=== PATIENT | male | born 1990 | race African-American/Black ===

== ENCOUNTER 2022-03-07 02:12 | Emergency (ER) | payer OTHER ==
[~2022-03-07] VITALS: Ht 188 cm; Wt 118.2 kg
[2022-03-07 02:40] LABS: BASOPHILS % (AUTO) 0.4 % (0.0-2.0); EOSINOPHILS % (AUTO) 3.1 % (1.0-6.0); HEMATOCRIT 44.7 % (41-53); HEMOGLOBIN 14.6 g/dL (13.5-17.5); LYMPHOCYTES % (AUTO) 32.6 % (22.0-44.0); MEAN CORPUSCULAR HEMOGLOBIN 27.8 pg (26.0-34.0); MEAN CORPUSCULAR HGB CONC 32.6 G/dL (31.0-37.0); MEAN CORPUSCULAR VOLUME 85 fL (80-100); MONOCYTES # (AUTO) 0.8 K/uL (0.1-1.0); MONOCYTES % (AUTO) 6.2 % (2.0-9.0); NEUTROPHILS # (AUTO) 7.1 K/uL (1.8-7.7); NEUTROPHILS % (AUTO) 57.7 % (40.0-70.0); PLATELET COUNT (AUTO) 257 K/uL (150-450); RED BLOOD CELL COUNT(AUTO) 5.24 MIL/uL (4.50-5.90); RED CELL DISTRIBUTION WIDTH 13.2 % (11.5-14.5)
[2022-03-07 02:43] LABS: ANION GAP 9 mmol/L (8-16); CALCIUM, TOTAL 8.9 mg/dL (8.8-10.5); CARBON DIOXIDE 27 mmol/L (22-29); CHLORIDE 102 mmol/L (98-107); CREATININE 0.98 mg/dL (0.60-1.30); GLOMERULAR FILTR. RATE CALC > 60 mL/min (>60); GLUCOSE,RANDOM 91 mg/dL (70-110); POTASSIUM 3.7 mmol/L (3.5-5.1); SODIUM SERUM 138 mmol/L (136-145); UREA NITROGEN, BLOOD 14 mg/dL (7-18)
[2022-03-07 02:49] LABS: ALANINE AMINOTRANSFERASE 55 U/L (12-78); ALBUMIN 3.9 g/dL (3.4-5.0); ALKALINE PHOSPHATASE 102 U/L (46-116); ASPARTATE AMINOTRANSFERASE 26 U/L (15-37); BILIRUBIN,TOTAL 0.5 mg/dL (0.1-1.0); LIPASE 47 U/L (73-393); TOTAL PROTEIN, SERUM 7.5 g/dL (6.4-8.2)
[2022-03-07] MEDS ORDERED: SODIUM CHLORIDE 0.9% 1,000 ML IV ONE (03:30)
[2022-03-07 04:15] VITALS: BP 148/93
[2022-03-07 05:00] LABS: APPEARANCE,URINE CLEAR (CLEAR); BILIRUBIN,URINE NEGATIVE (NEGATIVE); GLUCOSE, URINE (UA) NEGATIVE (NEGATIVE); KETONES,URINE NEGATIVE (NEGATIVE); LEUKOCYTE ESTERASE ,URINE NEGATIVE (NEGATIVE); NITRATE,URINE NEGATIVE (NEGATIVE); OCCULT BLOOD,URINE NEGATIVE (NEGATIVE); PH,URINE 7.5 (5.0-8.0); PROTEIN,URINE TRACE mg/dL (NEGATIVE); SPECIFIC GRAVITIY, URINE 1.025 (1.003-1.030); UROBILINOGEN,URINE <=1.0 mg/dL (<=1.0)
== END 2022-03-07 08:21 | disposition home or self-care (01) ==
LOC: EMS 02:18
DX: R10.84 Generalized abdominal pain (principal); F10.20 Alcohol dependence, uncomplicated
CPT/HCPCS: 36415; 74022; 74176; 80053; 81003; 83690; 85025; 93005; 96360; 99285; J7030

== ENCOUNTER 2024-08-27 12:19 | Inpatient (IN) | payer OTHER ==
[2024-08-27] VITALS (7 sets, daily range): BP systolic 111–151; BP diastolic 60–84; PULSE 72–97; RESP 15–16; TEMP 98.1–98.2; O2SAT 98
[~2024-08-27] VITALS: Ht 185.4 cm; Wt 181.0 kg
[2024-08-27] MEDS: TICAGRELOR 90 MG TABLET PO ONE (12:37)
[2024-08-27] MEDS: HEPARIN SODIUM,PORCINE 5,000 UNITS/ML VIAL IVP ONE (12:37)
[2024-08-27] MEDS: MORPHINE SULFATE 4 MG/ML SYRINGE IVP ONE (12:41)
[2024-08-27] MEDS: ONDANSETRON HCL 4 MG/2 ML VIAL IVP ONE (12:41)
[2024-08-27] MEDS ORDERED: ATORVASTATIN CALCIUM 20 MG TABLET ONE (12:44)
[2024-08-27] MEDS: ATORVASTATIN CALCIUM 40 MG TABLET PO ONE (12:47)
[2024-08-27 12:52] LABS: BASOPHILS % (AUTO) 0.4 % (0.0-2.0); EOSINOPHILS % (AUTO) 0.9 % (1.0-6.0); HEMATOCRIT 42.9 % (41-53); HEMOGLOBIN 13.8 g/dL (13.5-17.5); LYMPHOCYTES # (AUTO) 2.1 K/uL (1.0-4.8); LYMPHOCYTES % (AUTO) 16.7 % (22.0-44.0); MEAN CORPUSCULAR HEMOGLOBIN 27.9 pg (26.0-34.0); MEAN CORPUSCULAR HGB CONC 32.2 G/dL (31.0-37.0); MEAN CORPUSCULAR VOLUME 87 fL (80-100); MONOCYTES # (AUTO) 0.6 K/uL (0.1-1.0); MONOCYTES % (AUTO) 4.9 % (2.0-9.0); NEUTROPHILS # (AUTO) 9.7 K/uL (1.8-7.7); NEUTROPHILS % (AUTO) 77.1 % (40.0-70.0); PLATELET COUNT (AUTO) 275 K/uL (150-450); RED BLOOD CELL COUNT(AUTO) 4.95 MIL/uL (4.50-5.90); RED CELL DISTRIBUTION WIDTH 13.5 % (11.5-14.5); WHITE BLOOD COUNT (AUTO) 12.6 K/uL (4.5-11.0)
[2024-08-27] MEDS ORDERED: IOHEXOL 300 MG/ML 100 ML VIAL ONE (12:58)
[2024-08-27] MEDS ORDERED: LIDOCAINE/PF 1% 30 ML VIAL ONE (12:58)
[2024-08-27] MEDS ORDERED: HEPARIN SODIUM 1000 UNITS/NS 1,000 ML ONE (12:58)
[2024-08-27] MEDS ORDERED: SODIUM BICARBONATE 50 MEQ/50 ML VIAL ONE (12:58)
[2024-08-27] MEDS ORDERED: ONDANSETRON HCL 4 MG/2 ML VIAL IVP PRN (13:00)
[2024-08-27] MEDS ORDERED: NITROGLYCERIN 50 MG/D5% WATER 250 ML ONE (13:01)
[2024-08-27] MEDS ORDERED: VERAPAMIL HCL 2.5 MG/ML 2 ML VIAL ONE (13:01)
[2024-08-27 13:03] LABS: ANION GAP 7 mmol/L (8-16); CARBON DIOXIDE 27 mmol/L (22-29); CHLORIDE 102 mmol/L (98-107); CREATININE 1.03 mg/dL (0.60-1.30); GLOMERULAR FILTR. RATE CALC > 60 mL/min (>60); GLUCOSE,RANDOM 104 mg/dL (70-110); PROTHROMBIN TIME 10.3 SEC (9.4-11.6); SODIUM SERUM 136 mmol/L (136-145); UREA NITROGEN, BLOOD 15 mg/dL (7-18)
[2024-08-27] MEDS ORDERED: FentaNYL CITRATE PF 100 MCG/2 ML VIAL ONE (13:05)
[2024-08-27] MEDS ORDERED: MIDAZOLAM HCL 2 MG/2 ML VIAL ONE (13:05)
[2024-08-27 13:11] LABS: TROPONIN I-HIGH SENSITIVITY 14 ng/L (<76)
[2024-08-27 13:14] LABS: B-TYPE NATRIURETIC PEPTIDE < 5 pg/mL (0-100)
[2024-08-27] MEDS: HEPARIN SODIUM,PORCINE 1,000 UNITS/ML 10 ML VIAL IARTER ONE (13:19)
[2024-08-27] MEDS: HEPARIN SODIUM 1000 UNITS/NS 1,000 ML IARTER ONE (13:19)
[2024-08-27] MEDS: IOHEXOL 300 MG/ML 100 ML VIAL IARTER ONE ×2 (13:19→13:29)
[2024-08-27] MEDS: VERAPAMIL HCL 2.5 MG/ML 2 ML VIAL IARTER ONE (13:19)
[2024-08-27] MEDS: NITROGLYCERIN/D5W 50 MG/250 ML IV BOTTLE IARTER ONE (13:20)
[2024-08-27] MEDS: MIDAZOLAM HCL 2 MG/2 ML VIAL IVP ONE ×2 (13:28→13:32)
[2024-08-27] MEDS: FentaNYL CITRATE PF 100 MCG/2 ML VIAL IVP ONE ×2 (13:28→13:31)
[2024-08-27] MEDS: LIDOCAINE 1% 30 ML/SOD BICARB 8.4% 4 ML SQ ONE (13:29)
[2024-08-27 13:32] LABS: ALANINE AMINOTRANSFERASE 49 U/L (12-78); ALBUMIN 3.7 g/dL (3.4-5.0); ALKALINE PHOSPHATASE 95 U/L (46-116); ASPARTATE AMINOTRANSFERASE 30 U/L (15-37); BILIRUBIN,TOTAL 0.9 mg/dL (0.1-1.0); CREATINE KINASE, TOTAL ONLY 809 U/L (39-308); TOTAL PROTEIN, SERUM 7.6 g/dL (6.4-8.2)
[2024-08-27] MEDS ORDERED: HydrALAZINE HCL 20 MG/ML VIAL IVP PRN (13:45)
[2024-08-27] MEDS: ACETAMINOPHEN 325 MG TABLET PO PRN (18:42)
[2024-08-27] MEDS: AmLODIPine BESYLATE 5 MG TABLET PO SCH (20:43)
[2024-08-27] MEDS: DOCUSATE SODIUM 100 MG CAPSULE PO SCH (20:45)
[2024-08-27] MEDS: CHLORHEXIDINE GLUCONATE 2% TOWELETTE [2'S/6'S] TP SCH (20:46)
[2024-08-27] MEDS: FAMOTIDINE 20 MG TABLET PO SCH (20:46)
[2024-08-28] VITALS (9 sets, daily range): BP systolic 112–131; BP diastolic 62–77; PULSE 71–84; RESP 16–18; TEMP 98–98.8; O2SAT 87–100
[2024-08-28 06:27] LABS: BASOPHILS % (AUTO) 0.2 % (0.0-2.0); EOSINOPHILS % (AUTO) 1.9 % (1.0-6.0); HEMATOCRIT 41.9 % (41-53); HEMOGLOBIN 13.3 g/dL (13.5-17.5); LYMPHOCYTES # (AUTO) 3.7 K/uL (1.0-4.8); LYMPHOCYTES % (AUTO) 27.2 % (22.0-44.0); MEAN CORPUSCULAR HEMOGLOBIN 27.6 pg (26.0-34.0); MEAN CORPUSCULAR HGB CONC 31.8 G/dL (31.0-37.0); MEAN CORPUSCULAR VOLUME 87 fL (80-100); MONOCYTES # (AUTO) 0.9 K/uL (0.1-1.0); MONOCYTES % (AUTO) 6.6 % (2.0-9.0); NEUTROPHILS # (AUTO) 8.7 K/uL (1.8-7.7); NEUTROPHILS % (AUTO) 64.1 % (40.0-70.0); PLATELET COUNT (AUTO) 265 K/uL (150-450); RED BLOOD CELL COUNT(AUTO) 4.83 MIL/uL (4.50-5.90); RED CELL DISTRIBUTION WIDTH 13.7 % (11.5-14.5); WHITE BLOOD COUNT (AUTO) 13.6 K/uL (4.5-11.0)
[2024-08-28 06:41] LABS: HEMOGLOBIN A1C 4.9 % (3.8-5.6)
[2024-08-28 06:47] LABS: TROPONIN I-HIGH SENSITIVITY 33 ng/L (<76)
[2024-08-28 06:53] LABS: CHOL/HDL RATIO 4.8 (4.2-7.3)
[2024-08-28] MEDS: ATORVASTATIN CALCIUM 40 MG TABLET PO SCH (08:32)
[2024-08-28] MEDS: ASPIRIN 81 MG DR TABLET PO SCH (08:32)
[2024-08-28] MEDS: MORPHINE SULFATE 2 MG/ML SYRINGE IVP PRN (13:47)
[2024-08-28 15:04] LABS: APPEARANCE,URINE CLEAR (CLEAR); BILIRUBIN,URINE NEGATIVE (NEGATIVE); COLOR,URINE YELLOW (YELLOW); GLUCOSE, URINE (UA) NEGATIVE (NEGATIVE); KETONES,URINE NEGATIVE (NEGATIVE); LEUKOCYTE ESTERASE ,URINE NEGATIVE (NEGATIVE); NITRATE,URINE NEGATIVE (NEGATIVE); OCCULT BLOOD,URINE NEGATIVE (NEGATIVE); PH,URINE 5.5 (5.0-8.0); PROTEIN,URINE TRACE mg/dL (NEGATIVE); SPECIFIC GRAVITIY, URINE 1.032 (1.003-1.030); UROBILINOGEN,URINE <=1.0 mg/dL (<=1.0)
[2024-08-28 15:08] LABS: ALCOHOL, URINE DRUG SCREEN NEGATIVE (NEGATIVE); AMPHET/METH SCREEN,URINE NEGATIVE (NEGATIVE); BARBITURATE SCREEN, URINE NEGATIVE (NEGATIVE); BENZODIAZEPINES SCREEN,URINE POSITIVE (NEGATIVE); CANNABINOID SCREEN,URINE NEGATIVE (NEGATIVE); COCAINE SCREEN,URINE NEGATIVE (NEGATIVE); METHADONE SCREEN, URINE NEGATIVE (NEGATIVE); OPIATE SCREEN,URINE POSITIVE (NEGATIVE); PHENCYCLIDINE SCREEN,URINE NEGATIVE (NEGATIVE)
[2024-08-28 15:10] LABS: PH,URINE DRUG SCREEN 5.5 (5.0-8.0)
[2024-08-28] MEDS ORDERED: SODIUM CHLORIDE 0.9% 100 ML ONE (22:22)
[2024-08-28] MEDS ORDERED: IOHEXOL 350 MG/ML 100 ML VIAL ONE (22:23)
[2024-08-29] VITALS: BP 105/44; PULSE 84; RESP 18; TEMP 99.1; O2SAT 95
[2024-08-29 04:10] VITALS: BP 103/62; PULSE 71; RESP 18; TEMP 98.3; O2SAT 97
[2024-08-29 08:38] VITALS: BP 105/46; PULSE 68; RESP 18; TEMP 98; O2SAT 97
[2024-08-29] MEDS ORDERED: ASPI-1444 PO (09:58)
[2024-08-29] MEDS ORDERED: ATOR40TA71 PO (09:58)
[2024-08-29] MEDS ORDERED: AMLO-257 PO (09:58)
== END 2024-08-29 11:54 | disposition home or self-care (01) | DRG 281 ==
LOC: EMS 12:19 → EDH 13:34 → 5S 15:03
PROVIDERS: ADMIT Internal Medicine; ATTEND Internal Medicine
PROC: 4A023N7 Measurement of Cardiac Sampling and Pressure, Left Heart, Percutaneous Approach (ICD-10-PCS; principal; 2024-08-27)
PROC: B2111ZZ Fluoroscopy of Multiple Coronary Arteries using Low Osmolar Contrast (ICD-10-PCS; 2024-08-27)
DX: I21.3 ST elevation (STEMI) myocardial infarction of unspecified site (principal); Z68.43 Body mass index [BMI] 50.0-59.9, adult; E66.01 Morbid (severe) obesity due to excess calories; I10 Essential (primary) hypertension; E78.5 Hyperlipidemia, unspecified; I45.10 Unspecified right bundle-branch block; I25.10 Atherosclerotic heart disease of native coronary artery without angina pectoris; K21.9 Gastro-esophageal reflux disease without esophagitis; Z79.899 Other long term (current) drug therapy
CPT/HCPCS: 71045; 71260; 80048; 80061; 80076; 80307; 81003; 82550; 83036; 83880; 84484; 85025; 85610; 85730; 93005; 93306; 99285; J1644; J2250; J2270; J2405; J3010; J3490; J7050; Q9967; 36415-L1; 36415-TC; Z7610